=== PATIENT | female | born 1965 | race Two or more races ===

== ENCOUNTER 2021-01-10 08:07 | Inpatient (IN) | payer MEDICAID ==
[2021-01-07 10:44] LABS: BASOPHILS % (AUTO) 1.4 % (0.0-2.0); EOSINOPHILS % (AUTO) 3.6 % (0.0-3.0); HEMATOCRIT 39.9 % (37.0-47.0); MEAN CORPUSCULAR VOLUME 94 FL (80-99); MONOCYTES % (AUTO) 11.6 % (1.0-10.0); NEUTROPHILS % (AUTO) 62.4 % (45.0-75.0); PLATELET COUNT 271 K/UL (150-450); RED BLOOD COUNT 4.26 M/UL (4.20-5.40); RED CELL DISTRIBUTION WIDTH 13.5 % (11.6-14.8); WHITE BLOOD COUNT 6.4 K/UL (4.8-10.8)
[2021-01-07 10:45] LABS: APPEARANCE,URINE CLEAR; BILIRUBIN, URINE NEGATIVE (NEGATIVE); GLUCOSE, URINE (UA) NEGATIVE (NEGATIVE); KETONES,URINE 1+ (NEGATIVE); LEUKOCYTE ESTERASE ,URINE 1+ (NEGATIVE); NITRITE,URINE NEGATIVE (NEGATIVE); PH,URINE 6 (4.5-8.0); PROTEIN,URINE NEGATIVE (NEGATIVE); UROBILINOGEN,URINE NORMAL MG/DL (0.0-1.0)
[2021-01-07 10:46] LABS: COLOR,URINE YELLOW
[2021-01-07 10:56] LABS: ANION GAP 5 mmol/L (5-15); BLOOD UREA NITROGEN 14 mg/dL (7-18); CALCIUM 9.2 MG/DL (8.5-10.1); CARBON DIOXIDE 29 MMOL/L (21-32); CHLORIDE 110 MMOL/L (98-107); CREATININE 0.7 MG/DL (0.55-1.30); POTASSIUM 4.6 MMOL/L (3.5-5.1); SODIUM 144 MMOL/L (136-145)
--- NOTE | 2021-01-08 11:29 | Diagnostic Imaging Report ---
Indication: Cough Technique: 2 views of the chest Comparison: None Findings: Lungs and pleural spaces are clear. The heart size is normal. There is a right chest port catheter. There are mild degenerative changes of the thoracic spine Impression: No acute process
--- NOTE | 2021-01-08 23:14 | Pre-op HX & Phy Repo 2 SIG ---
DATE OF ADMISSION: 01/10/2021 HISTORY OF PRESENT ILLNESS: The patient is a 55-year-old female in overall good health, who presented in July 2020 with a mass in her left breast lower outer quadrant at 5 o'clock 3 cm from the nipple measuring at 3 cm. Core biopsy revealed an invasive ductal carcinoma, poorly differentiated, and core biopsy of a left axillary tail lymph node was negative for metastatic carcinoma. The patient was estrogen and progesterone receptor positive, HER2 negative, Ki-67 40%. She was seen in consultation by Oncology and received a course of neoadjuvant chemotherapy, which she completed on November 19, 2020. She was then seen in preparation to schedule surgery, but complained of chest pain. The previously palpable left breast mass was no longer palpable. Ultrasound was performed that revealed the lesion to be still present but smaller in size. She was seen by Cardiology and cleared for surgery. She is scheduled to undergo left breast partial mastectomy with preoperative needle localization and left axillary lymph node biopsy. OPERATIONS: section. MEDICATIONS: None. ALLERGIES: None. REVIEW OF SYSTEMS: 3, para 2, last menstrual period was in 2017. PHYSICAL EXAMINATION: GENERAL: The patient is 4-feet 10-inches, 179 pounds. VITAL SIGNS: Within normal limits. HEENT: Within normal limits. LUNGS: Clear. HEART: Regular rhythm. BREASTS: The breasts are large and ptotic. Right breast unremarkable. Left breast previously had a 3 cm mass at 5 to 6 o'clock midway between the areolar border and the periphery of the breast without any palpable axillary or supraclavicular lymphadenopathy. More recent exam revealed no palpable mass in the lower left breast. ABDOMEN: Soft. PELVIC AND RECTAL: Per primary care. EXTREMITIES WITHOUT: Edema. NEUROLOGIC: Physiologic. IMPRESSION: Invasive ductal carcinoma of the left breast, poorly differentiated, status post neoadjuvant chemotherapy. PLAN: Left breast partial mastectomy with preoperative needle localization and left axillary lymph node biopsy. DISCUSSION: I have had a full discussion with the patient regarding the nature of her condition, the nature of the surgery, indications, alternatives, options, and risks including bleeding, infection, scarring or distortion of breast or nipple, neuritis or neuralgia, need for postoperative drain, need for additional treatments following surgery based on final pathology including additional surgery, radiation, chemotherapy, endocrine therapy, or others. The patient understands and agrees to proceed. Herbert Dubon M.D. DR: SHANNAN JOB#: [id number] CC:
[~2021-01-10] VITALS: Ht 152.4 cm; Wt 79.8 kg
[2021-01-10] VITALS (13 sets, daily range): BP systolic 97–123; BP diastolic 55–81
[~2021-01-10 08:07] MED LIST: OMEPRAZOLE20 M2 ORAL; TYLENOL EXTRA500 MG ORAL
[2021-01-10] MEDS ORDERED: LR 1000ml ONE (09:00)
[2021-01-10] MEDS ORDERED: Sterile Water Irrig 1000ml IRRIG ONE (09:00)
[2021-01-10] MEDS ORDERED: NS Irrig 1000ml ONE (09:00)
--- NOTE | 2021-01-10 09:11 | Pre-Procedure Note/Attestation ---
Pre-Procedure Note/Attestation Complete Prior to Procedure Planned Procedure: left Procedure Narrative: left breast partial mastectomy with pre-operative needle localization and left axillary lymph node biopsy Indications for Procedure Pre-Operative Diagnosis: invasive ductal carcinoma left breast, status-post neoadjuvant chemotherapy Attestation I attest that I discussed the nature of the procedure; its benefits; risks and complications; and alternatives (and the risks and benefits of such alternatives), prior to the procedure, with the patient (or the patient's legal sales utility representative). I attest that, if there was a reasonable possibility of needing a blood transfusion, the patient (or the patient's legal sales utility representative) was given the [place] Department [employer] standardized written summary, pursuant to the Benjie Chubbuck Blood Safety Act ([place] Health and Safety Code # 1645, as amended). I attest that I re-evaluated the patient just prior to the surgery and that there has been no change in the patient's H&P, except as documented below: none Herbert Dubon MD Jan 10, 2021 09:11
[2021-01-10] MEDS ORDERED: Sodium Chloride 10ml vial INJ ONE (09:24)
[2021-01-10] MEDS ORDERED: Lidocaine 1% MPF 10mg/ml 5ml ONE (09:24)
[2021-01-10] MEDS ORDERED: fentaNYL 100 mcg/2 mL IV ONE (09:26)
[2021-01-10] MEDS ORDERED: Lidocaine 1% Plain 30 ml INJ ONE (09:31)
--- NOTE | 2021-01-10 09:33 | Anethesia Preoperative Eval ---
Anesthesia Pre-op PMH/ROS General Date of Evaluation: Jan 10, 2021 Time of Evaluation: 09:19 Anesthesiologist: Feli ASA Score: ASA 3 Mallampati Score Class I : Soft palate, uvula, fauces, pillars visible Class II: Soft palate, uvula, fauces visible Class III: Soft palate, base of uvula visible Class IV: Only hard plate visible Mallampati Classification: Class II Surgeon: Jagdish Diagnosis: L Breast CA Surgical Procedure: L Breast Partial Mastectomy with LND Anesthesia History: none Family History: no anesthesia problems Allergies: Coded Allergies: No Known Allergies (Unverified , 01/10/21) Medications: see eMAR Patient NPO?: Yes Past Medical History Cardiovascular: Reports: HTN Gastrointestinal/Genitourinary: Reports: GERD Hematology/Immune: Reports: other - Breast CA Musculoskeletal/Integumentary: Reports: OA PSxH Narrative: R Port Placement, C/S Anesthesia Pre-op Phys. Exam Physician Exam Last Vital Signs Date Time Temp Pulse Resp B/P (MAP) Pulse Ox O2 Delivery O2 Flow Rate FiO2 01/10/21 08:38 97.3 70 18 123/81 98 Room Air Constitutional: NAD Neurologic: CN 2-12 intact Cardiovascular: RRR Respiratory: CTA Gastrointestinal: S/NT/ND Airway Exam Mallampati Score: Class II MO: limited ROM: limited Teeth: missing, intact Anesthesia Pre-op A/P Risk Assessment & Plan Assessment: ASA 3 Plan: GA, SED Status Change Before Surgery: No Pre-Antibiotics Dru Gram Ancef IV Given Within 1 Hr of Incision: Yes Time Given: 09:36 Tyler Edmond MD Jan 10, 2021 09:33
[2021-01-10] MEDS ORDERED: fentaNYL 100 mcg/2 mL IV PRN (09:45)
[2021-01-10] MEDS ORDERED: oxyCODONE HCL/Acetaminophen 5/325mg ORAL PRN (09:45)
[2021-01-10] MEDS ORDERED: LORazepam Inj 2mg/ml 1ml IV PRN (09:45)
[2021-01-10] MEDS ORDERED: DiphenhydrAMINE 50mg/ml Inj IVP PRN (09:45)
[2021-01-10] MEDS ORDERED: Acetaminophen (Non formulary) 100 ML IV ONE (09:45)
[2021-01-10] MEDS ORDERED: Labetalol 5mg/ml 20ml vial IV PRN (09:45)
[2021-01-10] MEDS ORDERED: Atropine Sulfate 0.4mg/ml inj IVP PRN (09:45)
[2021-01-10] MEDS ORDERED: Hydromorphone 0.5mg/0.5ml inj IVP PRN (09:45)
[2021-01-10] MEDS ORDERED: Midazolam 2mg/2ml Inj IVP PRN (09:45)
[2021-01-10] MEDS ORDERED: HYDROcodone/Acetamin 5/325 tab ORAL PRN ×2 (09:45→11:30)
[2021-01-10] MEDS ORDERED: Meperidine 25mg/1ml Inj (FOR RIGORS ONLY) IV PRN (09:45)
[2021-01-10] MEDS ORDERED: Ketorolac 30mg Inj IV PRN ×2 (09:45)
[2021-01-10] MEDS ORDERED: Metoclopramide 10mg/2ml Inj IVP PRN ×2 (09:45→11:30)
[2021-01-10] MEDS ORDERED: HYDROcodone/Acetamin 7.5/325 tab ORAL PRN (09:45)
[2021-01-10] MEDS ORDERED: LR 1000ml 1,000 ML IVLG SCH (09:45)
--- NOTE | 2021-01-10 10:14 | 48 Hour Post Anesthesia Eval ---
Post Anesthesia Evaluation Procedure: L Breast Partial Mastectomy with LND Date of Evaluation: Jan 10, 2021 Time of Evaluation: 13:54 Blood Pressure Systolic: 128 0: 82 Pulse Rate: 67 Respiratory Rate: 18 Temperature (Fahrenheit): 98 O2 Sat by Pulse Oximetry: 100 Airway: patent Nausea: No Vomiting: No Pain Intensity: 2 Hydration Status: adequate Cardiopulmonary Status: Stable Follow-up Care/Observations: 0 Post-Anesthesia Complications: 0 Follow-up care needed: N/A Tyler Edmond MD Jan 10, 2021 10:14
--- NOTE | 2021-01-10 10:14 | Immediate Post-Op Evaluation ---
Immediate Post-Op Evalulation Immediate Post-Op Evalulation Procedure: L Breast Partial Mastectomy with LND Date of Evaluation: Jan 10, 2021 Time of Evaluation: 11:47 IV Fluids: 1000 LR Blood Products: 0 Estimated Blood Loss: 10 Urinary Output: 0 Blood Pressure Systolic: 102 Blood Pressure Diastolic: 66 Pulse Rate: 63 Respiratory Rate: 16 O2 Sat by Pulse Oximetry: 100 Temperature (Fahrenheit): 97.9 Pain Score (1-10): 2 Nausea: No Vomiting: No Complications 0 Patient Status: awake, reacts, patent, none Hydration Status: adequate Dru Gram Ancef IV Given Within 1 Hr of Incision: Yes Time Given: 09:36 Tyler Edmond MD Jan 10, 2021 10:14
--- NOTE | 2021-01-10 11:24 | Brief Operative Note ---
Immediate Post Operative Note Operative Note Pre-op Diagnosis: invasive ductal carcinoma left breast, status-post neoadjuvant chemotherapy Procedure: left breast partial mastectomy with pre-operative needle localization and left axillary lymph node biopsy Post-op Diagnosis: same Post-op Diagnosis: same as pre-op Findings: consistent w/pre-op dx studies Surgeon: micah Anesthesiologist: loida Anesthesia: general Specimen: yes - left breast tissue, left axillary lymph nodes Complications: none Condition: stable Fluids: see anesthesia record Estimated Blood Loss: minimal Drains: WING Implant(s) used?: No Herbert Dubon MD Jan 10, 2021 11:24
[2021-01-10] MEDS ORDERED: HYDROmorphone 1mg/ml Carpuject SUBQ PRN (11:30)
[2021-01-10] MEDS ORDERED: Bacitracin 50000 Units Vial ONE (11:41)
--- NOTE | 2021-01-10 12:14 | Operative Note - Dictated ---
DATE OF OPERATION: 01/10/2021 SURGEON: Herbert Dubon MD. ROD WELDER: None. ANESTHESIOLOGIST: Tyler Edmond MD. TYPE OF ANESTHESIA: General. PREOPERATIVE DIAGNOSIS: Invasive ductal carcinoma, left breast, status post neoadjuvant chemotherapy. POSTOPERATIVE DIAGNOSIS: Invasive ductal carcinoma, left breast, status post neoadjuvant chemotherapy. OPERATION PERFORMED: Left breast partial mastectomy with preoperative needle localization and left axillary lymph node biopsy. DESCRIPTION OF PROCEDURE: The patient was taken to the operating room and under general anesthesia with sequential compression device stockings in place, she was prepped and draped in the usual fashion. She originally presented with a 3 cm mass in the left breast at 5 o'clock, 3 cm from the nipple, which became nonpalpable after neoadjuvant chemotherapy. A curvilinear inferior breast incision was made achieving hemostasis with cautery and dissecting flaps circumferentially bringing the localization wire into the field. A partial mastectomy was accomplished utilizing the cautery and orienting the specimen with sutures placed, anterior, superior and medial. Inspection by pathology revealed the presence of the lesion of the wire and the clip from prior core biopsy. The margins seemed close superior and anterior, still additional superior and anterior tissue was resected using cautery for hemostasis. The field was irrigated with sterile water, followed by antibiotic solution and hemostasis carefully achieved with cautery. Incision was closed with interrupted 2-0 Vicryl deep dermal subcutaneous sutures followed by continuous 4-0 Monocryl subcuticular suture. A vertical left axillary incision was made achieving hemostasis with cautery and incising the clavipectoral fascia. Lower level dissection was performed with lymph nodes confirmed in the tissue by pathology. The dissection was performed using the Thunderbeat vessel sealing electrosurgical device with good hemostasis. Through separate stab incision inferolaterally, a 10 flat John drain was placed into the axilla and sutured to the skin with 2-0 nylon skin suture. The field was irrigated with sterile water and then antibiotic solution and hemostasis was secured. The clavipectoral fascia was closed with interrupted 2-0 Vicryl, subcutaneous tissues closed with interrupted 3-0 Vicryl and the skin closed with continuous 4-0 Monocryl subcuticular suture. Mastisol and half-inch Steri-Strips were applied to both incisions followed by dry sterile dressing. Final sponge and needle counts were correct. The patient tolerated the procedure well and left the operating room in good condition. Herbert Dubon M.D. DR: VILMA JOB#: [id number] CC:
--- NOTE | 2021-01-10 13:00 | NUR ---
NURSE NOTES: Yesi MARTINEZ brought patient by bed in stable condition. Alert and oriented x4. No complain of pain at this time. Surgical dressing intact and dry. WING x1 patent. IV dressing intact and dry. Belonging checked. Bed lowest position and side rails up. Call light within reach. Will continue to monitor.
[2021-01-10] MEDS: D5 1/2NS w/KCl 20mEq 1,000 ML IV SCH (14:38)
--- NOTE | 2021-01-10 15:26 | Cardiology Report ---
APPROVED REPORT EKG Measurement Heart [id number] <Conclusion> Normal sinus rhythm Normal ECG
[2021-01-10] MEDS: ceFAZolin sod 1 GM in D5W 55 ML IV SCH (17:33)
--- NOTE | 2021-01-10 19:30 | NUR ---
NURSE HAND-OFF: Important Events on Shift:Surgery today Patient Status: Stable Diet: Regular Pending Orders: N/A Pending Results/Labs:N/A Pending MD notification:N/A Latest Vital Signs: Temperature 97.4 , Pulse 79 , B/P 97 /61 , Respiratory Rate 18 , O2 SAT 98 , Nasal Cannula, O2 Flow Rate 2.0 . Vital Sign Comment: Stable Latest Vega Fall Score: 35 Fall Risk: Medium Risk Safety Measures: Call light Within Reach, Bed Alarm Zone 1, Side Rails Side Rails x2, Bed position Low and Locked. Fall Precautions: Yellow Socks Door Sign Patient Fall Education Report given to Chrissy PARMAR. Patient in stable condition.
[2021-01-11] VITALS: BP 100/65
[2021-01-11] MEDS: ceFAZolin sod 1 GM in D5W 55 ML IV SCH (01:30)
[2021-01-11 04:00] VITALS: BP 98/55
[2021-01-11] MEDS: D5 1/2NS w/KCl 20mEq 1,000 ML IV SCH (05:38)
--- NOTE | 2021-01-11 07:15 | NUR ---
NURSE HAND-OFF: Important Events on Shift:[UNEVENTFUL NIGHT, EDUCATED PATIENT ON WING DRAIN, INCENTIVE SPIROMETER, DISCHARGE PLAN HOME, EMPTIED TOTAL OF 35ML OF FLUID FROM WING DRAIN] Patient Status: [STABLE, AFEBRILE] Diet: [REGULAR] Pending Orders: [N/A] Pending Results/Labs:[N/A] Pending MD notification:[] Latest Vital Signs: Temperature 97.9 , Pulse 64 , B/P 98 /55 , Respiratory Rate 18 , O2 SAT 100 , Nasal Cannula, O2 Flow Rate 2.0 . Vital Sign Comment: [STABLE, AFEBRILE] Latest Vega Fall Score: 35 Fall Risk: Medium Risk Safety Measures: Call light Within Reach, Bed Alarm Zone 2, Side Rails Side Rails x2, Bed position Low and Locked. Fall Precautions: Yellow Socks Door Sign Patient Fall Education Report given to [JUAN HUDSON].
--- NOTE | 2021-01-11 07:20 | NUR ---
NURSE NOTES: Handoff received from Chrissy MARTINEZ. Patient is awake and alert, no signs of distress noted, primarily Latvian speaking. PAtient is reporting 6/10 ;ain headache, will medicate as ordered. Surgical site is clean and dry. Right hand IV is intact and running IVF as ordered. Patient updated on plan of care. Bed is low and locked, side rails uip x2, call light is within reach.
[2021-01-11 08:00] VITALS: BP 106/69
--- NOTE | 2021-01-11 09:13 | General Progress Note ---
Progress Note Progress Note Doing well this morning- some pain and limited ambulation earlier but improved left breast and axilla incisions clean with intact steristrips WING 30cc overnight serosang Imp: Stable Plan; discharge Rx [place] #20 f/u office 01/16 Instructions/limitations/supplies discussed/provided Herbert Dubon MD Jan 11, 2021 09:13
[2021-01-11] MEDS ORDERED: HYDROCODON-ACE1 EA15 ORAL (09:49)
[2021-01-11 11:47] VITALS: BP 97/59
[2021-01-11 15:45] VITALS: BP 102/56
--- NOTE | 2021-01-11 15:57 | NUR ---
NURSE NOTES: Patient safely discharged from to home via private vehicle. Information packet provided and questions answered. Medication and WING drain education provided, patient verbalized understanding. Patient has follow up appt with Dr. Dubon in 5 days. Belongings list verified and signed, Iv and ID wristband removed.
--- NOTE | 2021-01-14 14:19 | Discharge Summary ---
Discharge Summary Discharge Summary _ Date of admission: 01/10/2021 Date of discharge: 01/11/[address] Dubon History of Present Illness and Brief Hospital Course Ms. Dejuan Harmon is a 55-year-old female who presented to [facility] for a scheduled surgery. She was in overall good health, who presented in July 2020 with a mass in her left breast at lower outer quadrant at 5 o'clock, 3 cm from the nipple measuring at 3 cm. Core biopsy revealed a poorly differentiated invasive ductal carcinoma. Core biopsy of the left axillary tail lymph node was negative for metastatic carcinoma. The patient was estrogen and progesterone receptor positive, HER2 negative, Ki-67 40%. She received a new adjuvant chemotherapy which she completed on 11/19/2020. She was then seen in preparation to schedule surgery, but complained of chest pain. The previously palpable left breast mass was no longer palpable. Ultrasound was performed that revealed the lesion to be still present but smaller in size. She was seen by cardiology and was cleared for surgery. She was scheduled for left breast partial mastectomy with preoperative needle localization and left axillary lymph node biopsy. The patient tolerated the procedure well and left the operating room in good condition. The details of the operation can be found in the operative note by Dr. Dubon. Patient was monitored closely after the procedure. Patient was educated on WING drain, and incentive spirometer. Patient was instructed to follow-up with Dr. Dubon in 5 days for a scheduled appointment. Patient was medically stable for discharge and was discharged on 01/11/2021. Consultants: None Discharge Condition Stable Discharge Activity Advance as tolerated Final diagnoses Invasive ductal carcinoma of the left breast, poorly differentiated, s/p neoadjuvant chemotherapy s/p left breast partial mastectomy with preoperative needle localization and left axillary lymph node biopsy I have been assigned to dictate discharge summary for this account. I was not involved in the patient's management Arun Red Jan 14, 2021 14:19
== END 2021-01-11 16:00 | disposition home or self-care (01) | DRG 363 ==
LOC: SUR 08:07 → 4E 13:07
PROC: 07B60ZX Excision of Left Axillary Lymphatic, Open Approach, Diagnostic (ICD-10-PCS; 2021-01-10)
PROC: 0HBU0ZZ Excision of Left Breast, Open Approach (ICD-10-PCS; principal; 2021-01-10 09:30)
DX: C50.512 Malignant neoplasm of lower-outer quadrant of left female breast (principal); Z17.1 Estrogen receptor negative status [ER-]; I10 Essential (primary) hypertension; K21.9 Gastro-esophageal reflux disease without esophagitis
CPT/HCPCS: 36415; 71046; 80048; 81001; 85025; 85610; 85730; 93005; J2405